=== PATIENT | female | born 1955 | race Caucasian/White ===

== ENCOUNTER 2017-01-14 07:57 | Day surgery (SDC) | payer MEDICARE, MEDICAID ==
--- NOTE | 2017-01-03 09:47 | HP ---
PREOPERATIVE HISTORY AND PHYSICAL: DATE OF ADMISSION/SURGERY: 01/14/17 - [facility] DATE OF OFFICE VISIT/ENCOUNTER: 12/23/16 ATTENDING SURGEON: Kiara Miranda MD * (DICTATED BY HILL CLAYTON) PROCEDURE: Right long and middle finger trigger finger releases. CHIEF COMPLAINT: Left long and middle finger triggering. HISTORY OF PRESENT ILLNESS: This is a 61-year-old female, who reports triggering and catching in her right ring and long fingers for several years now. She thinks it may be related to some of her job responsibility. 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 She is right handed. She feels that the problem is bothersome enough that she would like definitive treatment at this time. Towards the end of 2015, the patient had been experiencing some issues with chest pain and heart palpitations; however, she has since seen Dr. Ireland and has been cleared to proceed with surgery. PAST MEDICAL HISTORY: 1. Asthma. 2. Hypertension. 3. Acid reflux. 4. History of cervical cancer. 5. History of erysipelas. PAST SURGICAL HISTORY: 1. Hysterectomy. 2. Right shoulder surgery x2. 3. Right total hip arthroplasty. CURRENT MEDICATIONS: 1. Albuterol sulfate 2 mg 2 puffs 4 times a day p.r.n. 2. Lisinopril/hydrochlorothiazide 10/12.5 mg daily. 3. Prilosec ddvf-bon-afnecvm 20 mg daily. 4. Ocuvite. 5. Vitamin B12 daily. ALLERGIES: No known drug allergies. FAMILY MEDICAL HISTORY: Significant for cardiac disease. SOCIAL HISTORY: The patient is employed at [employer] as a appliance fixer. She is a former smoker. She quit 3 years ago. Prior to that, she smoked for 40 years, a pack per day up to a pack and a half. She admits to recreational use of marijuana on occasion and does admit to alcohol use socially approximately 4 to 5 times a week. REVIEW OF SYSTEMS: General: Negative for fevers, chills, or night sweats. No known anesthesia problems. HEENT: Positive for occasional headache. Negative for lightheadedness or syncopal episodes. Integumentary: Negative for abrasions, lesions, or open wounds. Cardiothoracic: Positive for hypertension. Negative for chest pain, palpitations, or edema. Pulmonary: Positive for shortness of breath with exertion secondary to asthma. GI: Positive for acid reflux. Negative for nausea, vomiting, diarrhea, or constipation. : Negative for nocturia, urinary frequency, urgency, history of UTIs, or kidney problems. Musculoskeletal: Positive for current complaint, otherwise negative. Neurological: Negative for paresthesias, numbness, history of seizures, stroke, or epilepsy. Endocrine: Negative for diabetes or thyroid issues. Hematologic: Negative for easy bruising, anemia, excessive bleeding, or history of DVT. Infectious Disease: Positive for history of erysipelas. Negative for history of MRSA, hepatitis C, or HIV. PHYSICAL EXAMINATION GENERAL: Well-developed, well-nourished, 61-year-old female in no acute distress. VITAL SIGNS: Height 5 feet 3.5 inches, weight 159 pounds, pulse rate 68, blood pressure 100/60. HEENT: Normocephalic, atraumatic. Pupils are equal, round, and reactive to light and accommodation. Extraocular movements are intact. NECK: Supple. No palpable lymph nodes. Throat is clear. PULMONARY: Lungs are clear to auscultation bilaterally. No wheezes, rales, or rhonchi. CARDIOVASCULAR: Regular rate and rhythm. S1 and S2. No murmurs, rubs, or gallops. No edema. ABDOMEN: Positive bowel sounds, soft, nontender. NEUROLOGICAL: Alert and oriented x3. Cranial nerves II through XII are intact. Sensation is intact to light touch. MUSCULOSKELETAL: On exam of her right hand, she has tenderness to palpation at A1 fatmata of both the ring and long finger. She has difficulty reaching full flexion particularly with the ring finger and does have active triggering. Neurovascular function is intact. DIAGNOSTIC STUDIES: X-rays of the right hand AP, lateral, and oblique, show some [id number] degenerative changes throughout the fingers, no acute findings. IMPRESSION: Right long and ring finger trigger fingers. PLAN: The patient is scheduled to undergo right long and middle finger trigger finger release with Dr. Miranda on 01/14/17. She will follow up 10 to 14 days postop for followup and suture removal. A prescription for tramadol was e- scribed to the patient's pharmacy for postoperative pain management. HILL CLAYTON [id number]/[facility] #: [id number] [facility] HOSPITALRussel
[~2017-01-14 07:57] MED LIST: Buffered Lidocaine 0.9% SYRIN* 5 ML/SYR SYRINGE INTRADERM ONE; Dexamethasone IV* 4 MG/ML 1 ML (4 MG) IV SLOW PU ONE; Dexamethasone IV* 4 MG/ML 1 ML (4 MG) ONE; Lidocaine 1% INJ* 10 MG/ML 30 ML SDV ONE
[2017-01-14] MEDS ORDERED: Ondansetron INJ* 2 MG/ML VIAL ONE (09:38)
[2017-01-14] MEDS ORDERED: Midazolam* 1 MG/ML 5 ML VIAL (5 MG) ONE (09:38)
[2017-01-14] MEDS ORDERED: Ketorolac INJ* 30 MG/ML 1 ML VIAL ONE (09:38)
[2017-01-14] MEDS ORDERED: Propofol* 10 MG/ML 20 ML BTL IV PUSH ONE (09:38)
[2017-01-14] MEDS ORDERED: oxyCODONE/Acetamin 5/325 MG* TAB PO PRN (10:03)
[2017-01-14 10:52] VITALS: BP 113/63
--- NOTE | 2017-01-15 01:09 | OP ---
DATE OF OPERATION: 01/14/17 [facility] DATE OF : 55 SURGEON: Kiara Miranda MD HOME [employer] W[employer]ING MACHINE MECHANIC: HILL Terrell ANESTHESIOLOGIST: Brandon Maxewll MD ANESTHESIA: Local MAC. PRE-OP DIAGNOSIS: Right long and ring finger trigger finger. POST-OP DIAGNOSIS: Right long and ring finger trigger finger. OPERATIVE PROCEDURE: Right long and ring finger trigger release. ESTIMATED BLOOD LOSS: Zero. TOURNIQUET TIME: 10 minutes. INDICATIONS FOR PROCEDURE: Elisabeth is a 61-year-old woman who has painful locking of her right long and ring finger. She presents for trigger finger release. DESCRIPTION OF PROCEDURE: The patient was brought to the operating room, was given a sedation anesthetic and a local infiltration of 10 cc of 1% plain lidocaine in the palm of her right hand. The skin of her right hand and forearm were prepped and draped in the usual sterile fashion. The hand and forearm were exsanguinated and the tourniquet elevated to 250 mmHg. A transverse incision was made, centered over the A1 pulleys of the long and right finger of the right hand. We dissected bluntly through the subcutaneous tissue down to the flexor tendon sheath. The A1 pulleys were both incised longitudinally completely releasing the tendons, which were in good condition. The wound was irrigated and the skin edges were reapproximated with 4-0 nylon suture. The wound was dressed with Xeroform, 4x4, Webril, and an Clint wrap. The patient tolerated the procedure well and was brought to the recovery room in good condition. [id number]/[facility] #: [id number] MTDD
== END 2017-01-14 11:01 | disposition home or self-care (01) ==
LOC: OREAST 07:57
PROVIDERS: ATTEND Orthopaedic Surgery
DX: M65.331 Trigger finger, right middle finger (principal); M65.341 Trigger finger, right ring finger; I10 Essential (primary) hypertension; J45.909 Unspecified asthma, uncomplicated; Z87.891 Personal history of nicotine dependence
CPT/HCPCS: J1100; J1885; J2001; J2250; J2405; J2704